=== PATIENT | female | born 1980 | race Two or more races ===

== ENCOUNTER 2018-03-10 16:43 | Emergency (ER) | payer SELFPAY ==
[~2018-03-10] VITALS: Ht 165.1 cm; Wt 95.3 kg
[2018-03-10] MEDS ORDERED: GLIPIZIDE5 MG ORAL (16:59)
[2018-03-10] MEDS ORDERED: BENAZEPRIL HCL20 MG ORAL (16:59)
[2018-03-10] MEDS ORDERED: METFORMIN HCL1000 M1 ORAL (16:59)
[2018-03-10] MEDS ORDERED: NORCO 5-325 TA1 EACH ORAL (17:25)
[2018-03-10] MEDS ORDERED: ROBAXIN-750750 MG PO (17:25)
--- NOTE | 2018-03-10 17:25 | Emergency Room Report ---
History of Present Illness General Chief Complaint: Back Pain-No Injury Source: Patient Present Illness HPI 38-year-old female p/w back pain for 7 days. Patient states pain started gradually. Pain is localized to right lower back, sharp in nature, radiating down leg. Movement worsens pain. There are no alleviating factors. Patient took pain medications, Tylenol and Flexeril, with minimal relief. This is the first occurrence of back pain. Denies trauma. Denies lower extremity weakness/numbness, no bowel/bladder retention or incontinence, saddle anesthesia. Denies fever, chills, abdominal pain, n/v, dysuria/hematuria. No history of IVDA Allergies: Coded Allergies: ASPIRIN (Verified Allergy, Unknown, 03/10/18) Patient History Past Medical History: see triage record Past Surgical History: none Pertinent Family History: none Last Menstrual Period: 02/23/2019 Reviewed Nursing Documentation: PMH: Agreed; PSxH: Agreed Nursing Documentation-PMH Past Medical History: No History, Except For Hx Hypertension: Yes Hx Diabetes: Yes Review of Systems All Other Systems: negative except mentioned in HPI Physical Exam Vital Signs Date Time Temp Pulse Resp B/P (MAP) Pulse Ox O2 Delivery O2 Flow Rate FiO2 03/10/18 16:55 98.5 94 14 135/85 99 Room Air 98.4 Sp02 EP Interpretation: reviewed, normal General Appearance: alert, GCS 15, non-toxic, mild distress Head: normocephalic, atraumatic Eyes: bilateral eye normal inspection, bilateral eye PERRL, bilateral eye EOMI ENT: normal ENT inspection, normal pharynx, normal voice, moist mucus membranes Neck: normal inspection, full range of motion, supple Respiratory: normal inspection, lungs clear, normal breath sounds, no respiratory distress, no retraction, no wheezing, speaking full sentences, chest symmetrical Cardiovascular #1: normal inspection, regular rate, rhythm, no edema, normal capillary refill Cardiovascular #2: 2+ radial (R), 2+ radial (L) Gastrointestinal: normal inspection, non tender, soft, non-distended, no guarding Musculoskeletal: other - Right lower lumbar paraspinal tenderness, no midline tenderness, full range of motion all extremities Neurologic: normal inspection, alert, oriented x3, responsive, motor strength/ tone normal, sensory intact, normal gait, speech normal Psychiatric: normal inspection, judgement/insight normal, memory normal Skin: normal inspection, normal color, no rash, warm/dry, well hydrated, normal turgor Medical Decision Making Diagnostic Impression: Primary Impression: Back pain ER Course 38-year-old female p/w back pain for one week DDX: Likely musculoskeletal back pain vs. muscular strain vs. sciatica Lumbar fracture is unlikely given patients age, no midline tenderness, no history of trauma, and that patient is ambulatory. Therefore, at this time no imaging is indicated Serious diagnoses such as cord compression, epidural abscess is unlikely in this patient given the clinical scenario and abscess of neurological symptoms or findings. Patient appears nontoxic. Plan: Patient is allergic to Motrin, will give Robaxin and [facility] ER course: Patient has remained nontoxic appearing and ambulatory in the ED. Pain improved w/ medications Disposition: Patient will be discharged to home with prescription of Robaxin and [facility] Patient cautioned of the effects of robaxin including possible impairment of physical or mental abilities. Patient was instructed to refrain from operating machinery or driving. Patient is also cautioned on the GI effects of motrin and to take sparingly. Patient verbalized understanding. Strict precautions discussed with patient on when to emergently return to the ED which includes severe/worsening back pain, leg weakness/numbness, urinary retention/incontinence, fever or chills, which may indicate severe illness. Patient is to follow up with their PMD within 5 days. Patient agrees with plan. Please note that this Emergency Department Report was dictated using [employer] machine operator automatic technology software, occasionally this can lead to erroneous entry secondary to interpretation by the dictation equipment. Last Vital Signs Date Time Temp Pulse Resp B/P (MAP) Pulse Ox O2 Delivery O2 Flow Rate FiO2 03/10/18 16:55 98.5 94 14 135/85 99 Room Air 98.4 Disposition: HOME, SELF-CARE Condition: Improved Scripts Methocarbamol* (ROBAXIN-750*) 750 Mg Tablet 750 MG PO QID, #28 TAB 0 Refills Prov: Retino,Clairose M.DSherron 03/10/18 Hydrocodone Bit/Acetaminophen 5-325* (NORCO 5-325*) 1 Each Tablet 1 TAB ORAL Q6H PRN for For Pain, #10 TAB 0 Refills Prov: Retino,Clairose M.DSherron 03/10/18 Patient Instructions: Back Pain, Adult, Sciatica Retino,Deb Garza Mar 10, 2018 17:25
[2018-03-10] MEDS ORDERED: Norco 5mg/325mg tab ORAL ONE (17:30)
[2018-03-10] MEDS ORDERED: Methocarbamol 750mg tab ORAL ONE (17:30)
[2018-03-10 17:43] VITALS: BP 135/85
[2018-03-10 18:23] VITALS: BP 135/85
== END 2018-03-10 18:25 | disposition home or self-care (01) ==
LOC: EMR 17:55
DX: M54.9 Dorsalgia, unspecified (principal); E11.9 Type 2 diabetes mellitus without complications; I10 Essential (primary) hypertension; Z88.6 Allergy status to analgesic agent
CPT/HCPCS: 99283

== ENCOUNTER 2019-01-22 22:58 | Emergency (ER) | payer MEDICAID ==
[~2019-01-22] VITALS: Ht 165.1 cm; Wt 90.7 kg
[~2019-01-22 22:58] MED LIST: BENAZEPRIL HCL20 MG ORAL; GLIPIZIDE5 MG ORAL; METFORMIN HCL1000 M1 ORAL; NORCO 5-325 TA1 EACH ORAL; ROBAXIN-750750 MG PO
[2019-01-22 23:15] VITALS: BP 146/91
--- NOTE | 2019-01-22 23:15 | NUR ---
ER Nurse Note: Pt came from home c/o lower back pain since 1999. Pt stated unknown cause; no trauma to back, skin clean dry intact. Pt stated "she was doing normal house things when my back started to hurt". Pt took flexeril at 2130 with no relief. Pt ambulated to bedside; will continue to monitor.
[2019-01-22] MEDS ORDERED: HYDROcodone/Acetamin 5/325 tab ORAL ONE (23:45)
[2019-01-22] MEDS ORDERED: Ketorolac 60mg Inj IM ONE (23:45)
[2019-01-23 00:22] LABS: APPEARANCE,URINE CLEAR; BILIRUBIN, URINE NEGATIVE (NEGATIVE); COLOR,URINE PALE YELLOW; GLUCOSE, URINE (UA) NEGATIVE (NEGATIVE); KETONES,URINE NEGATIVE (NEGATIVE); LEUKOCYTE ESTERASE ,URINE NEGATIVE (NEGATIVE); NITRITE,URINE NEGATIVE (NEGATIVE); PH,URINE 5 (4.5-8.0); PROTEIN,URINE NEGATIVE (NEGATIVE); UROBILINOGEN,URINE NORMAL MG/DL (0.0-1.0)
--- NOTE | 2019-01-23 00:23 | Emergency Room Report ---
History of Present Illness General Chief Complaint: Lower Back Pain or Injury Source: Patient Present Illness HPI Patient presents with complaints of bilateral lower back pain Reports that just this evening as she was walking she had increased pain to that region Limited her ability to stand and walk Denies any radiation to the lower extremity denies any saddle paresthesia denies any focal weakness Denies any recent trauma or change in physical activity patient took a Flexeril with minimal improvement Allergies: Coded Allergies: ASPIRIN (Verified Allergy, Unknown, 03/10/18) Patient History Past Medical History: see triage record Pertinent Family History: none Last Menstrual Period: 01/31/19 Now: No Reviewed Nursing Documentation: PMH: Agreed; PSxH: Agreed Nursing Documentation-PMH Past Medical History: No History, Except For Hx Hypertension: Yes Hx Diabetes: Yes Review of Systems All Other Systems: negative except mentioned in HPI Physical Exam Vital Signs Date Time Temp Pulse Resp B/P (MAP) Pulse Ox O2 Delivery O2 Flow Rate FiO2 01/22/19 23:07 98.2 103 22 146/91 (109) 99 Room Air Sp02 EP Interpretation: reviewed, normal General Appearance: well appearing, no apparent distress Head: normocephalic, atraumatic Eyes: bilateral eye PERRL, bilateral eye EOMI ENT: hearing grossly normal, normal pharynx, TMs + canals normal, uvula midline Neck: full range of motion, supple, no meningismus, no bony tend Respiratory: lungs clear, normal breath sounds, no rhonchi, no respiratory distress, no retraction, no accessory muscle use Cardiovascular #1: normal peripheral pulses, regular rate, rhythm, no edema, no gallop, no JVD, no murmur Gastrointestinal: normal bowel sounds, non tender, soft, no mass, no organomegaly, non-distended, no guarding, no hernia, no pulsatile mass, no rebound Genitourinary: no CVA tenderness Musculoskeletal: other - Increased spasming with soft tissue increased tone paraspinal lumbar 2, 3 region no midline step-offs Neurologic: oriented x3, responsive, conference service coordinator III-XII nml as tested, motor strength/ tone normal, sensory intact Psychiatric: mood/affect normal Skin: no rash Lymphatic: normal inspection, no adenopathy Medical Decision Making Diagnostic Impression: Primary Impression: Low back pain ER Course Multiple differentials and consideration including but not limited to muscle skeletal, neurological, neurosurgical, infectious pathology patient's evaluation is consistent with likely Muscular skeletal spasm I do not appreciate any obvious endorgan injury Urine sample was also clear and patient will have initial conservative outpatient trial Labs Test 01/23/19 00:00 Urine Color Pale yellow Urine Appearance Clear Urine pH 5 (4.5-8.0) Urine Specific [place] 1.010 (1.005-1.035) Urine Protein Negative (NEGATIVE) Urine Glucose (UA) Negative (NEGATIVE) Urine Ketones Negative (NEGATIVE) Urine Blood Negative (NEGATIVE) Urine Nitrite Negative (NEGATIVE) Urine Bilirubin Negative (NEGATIVE) Urine Urobilinogen Normal MG/DL (0.0-1.0) Urine Leukocyte Esterase Negative (NEGATIVE) Urine HCG, Qualitative Negative (NEGATIVE) Last Vital Signs Date Time Temp Pulse Resp B/P (MAP) Pulse Ox O2 Delivery O2 Flow Rate FiO2 01/22/19 23:15 98.2 88 22 146/91 99 Room Air Status: improved Disposition: HOME, SELF-CARE Condition: Improved Scripts Methocarbamol* (ROBAXIN-750*) 750 Mg Tablet 750 MG PO TID, #21 TAB 0 Refills Prov: Maddie Baig DO 01/23/19 Hydrocodone Bit/Acetaminophen 5-325* (NORCO 5-325*) 1 Each Tablet 1 TAB ORAL Q6H PRN for For Pain, #10 TAB 0 Refills Prov: Maddie Baig DO 01/23/19 Referrals: NON PHYSICIAN (PCP) Additional Instructions: Patient is provided with the discharge instructions notified to follow up with primary doctor in the next 2-3 days otherwise return to the er with any worsening symptoms. Please note that this report is being documented using [employer] technology. This can lead to erroneous entry secondary to incorrect interpretation by the dictating instrument. Maddie Baig DO Jan 23, 2019 00:22
[2019-01-23 00:46] VITALS: BP 142/86
--- NOTE | 2019-01-23 00:47 | NUR ---
ER Nurse Note: Pt tolerated meds well; pain 4/10. Pt ambulatroy, slow steady gait. Pt resting in bed, a&ox4,VSS, no signs of distress. All orders completed. All safety measures met; will continue to montior.
[2019-01-23] MEDS ORDERED: NORCO 5-325 TA1 EACH ORAL (01:09)
[2019-01-23] MEDS ORDERED: ROBAXIN-750750 MG PO (01:09)
--- NOTE | 2019-01-23 01:14 | NUR ---
ER Nurse Note: Pt seen, treated, medically cleared for discharge by ERMD. Discharge instuctions and prescriptions given with repeat verbalization by pt. Emphasized to follow up with primay care provider; take whole course of medication. All orders completed per ERMD orders. Pt a&ox4, VSS, no signs of distress. ID band removed. Pt left with all belongings, left with own transportation.
[2019-01-23 01:15] VITALS: BP 142/86
== END 2019-01-23 01:15 | disposition home or self-care (01) ==
LOC: EMR 23:40
DX: M54.5 Low back pain (principal); Z88.6 Allergy status to analgesic agent; E11.9 Type 2 diabetes mellitus without complications; I10 Essential (primary) hypertension
CPT/HCPCS: 81003; 81025; 82962; 96372; 99283